=== PATIENT | female | born 1970 | race Caucasian/White ===

== ENCOUNTER 2018-05-14 | Observation (INO) | payer OTHER | END 2018-05-15 14:15 | disposition home or self-care (01) | PROVIDERS: ADMIT Obstetrics & Gynecology | PROC: 0UT94ZZ Resection of Uterus, Percutaneous Endoscopic Approach (ICD-10-PCS; principal; 2018-05-14) | PROC: 0UT74ZZ Resection of Bilateral Fallopian Tubes, Percutaneous Endoscopic Approach (ICD-10-PCS; principal; 2018-05-14) | DX: D25.9 Leiomyoma of uterus, unspecified (principal); D64.9 Anemia, unspecified | CPT/HCPCS: 58544; G0378; J0690; J1100; J1170; J1885; J2250; J2405; J2704; J3010; J3360; Q9968 ==